=== PATIENT | female | born 1965 | race Caucasian/White ===

== ENCOUNTER 2016-11-03 17:27 | Emergency (ER) | payer MEDICAID ==
[~2016-11-03] VITALS: Ht 170.2 cm; Wt 120.0 kg
[2016-11-03] MEDS ORDERED: SODIUM CHLORIDE 0.9% 1,000ML IVBOLUS ONE (18:30)
[2016-11-03] MEDS ORDERED: ONDANSETRON 2MG/ML, 2ML IVPush ONE (18:30)
[2016-11-03] MEDS ORDERED: ONDANSETRON 2MG/ML, 2ML ONE (18:45)
[2016-11-03 18:52] LABS: BLOOD UREA NITROGEN 11 mg/dL (7-18)
[2016-11-03 18:58] LABS: ASPARTATE AMINO TRANSFERASE 12 U/L (15-37); IS PT STATUS REG ER OR PRE ER? YES
[2016-11-03 20:07] VITALS: BP 133/74
== END 2016-11-03 20:10 | disposition home or self-care (01) ==
LOC: ED 18:08
DX: S39.012A Strain of muscle, fascia and tendon of lower back, initial encounter (principal); M54.41 Lumbago with sciatica, right side; R55 Syncope and collapse; R19.7 Diarrhea, unspecified; J45.909 Unspecified asthma, uncomplicated; W19.XXXA Unspecified fall, initial encounter; Y93.89 Activity, other specified; Y99.8 Other external cause status; Y92.002 Bathroom of unspecified non-institutional (private) residence as the place of occurrence of the external cause
CPT/HCPCS: 36415; 80053; 84484; 85025; 93005; 96361; 96374; 99285; J2405; J7030

== ENCOUNTER 2018-12-15 19:28 | Emergency (ER) | payer BC, MEDICAID ==
[~2018-12-15] VITALS: Ht 170.2 cm; Wt 119.2 kg
[2018-12-15 19:40] VITALS: BP 125/84
[2018-12-15 20:09] LABS: BASOPHILS # (AUTO) 0.14 x10^3/uL (0-0.1); BASOPHILS % (AUTO) 2 % (0-1); EOSINOPHILS # (AUTO) 0.15 x10^3/uL (0-0.4); EOSINOPHILS % (AUTO) 2 % (1-7); LYMPHOCYTES # (AUTO) 2.39 x10^3/uL (1-3.4); LYMPHOCYTES % (AUTO) 28 % (22-44); MD NO; MEAN CORPUSCULAR HEMOGLOBIN 21.2 pg (27.0-34.8); MEAN CORPUSCULAR HGB CONC 31.2 g/dL (32.4-35.8); MEAN CORPUSCULAR VOLUME 67.8 fL (80-100); MEAN PLATELET VOLUME 8.2 fL (7.4-10.4); MONOCYTES # (AUTO) 0.71 x10^3/uL (0.2-0.8); MONOCYTES % (AUTO) 8 % (2-9); NEUTROPHILS # (AUTO) 5.16 x10^3/uL (1.8-6.8); NEUTROPHILS % (AUTO) 60 % (42-75); PLATELET COUNT 552 x10^3/uL (130-400); RED BLOOD COUNT 4.57 x10^6/uL (3.82-5.3); RED CELL DISTRIBUTION WIDTH 18.8 % (9.6-15.2)
[2018-12-15 20:17] LABS: ALANINE AMINOTRANSFERASE 25 U/L (12-78); ALBUMIN 3.7 g/dL (3.4-5.0); ANION GAP 10 mmol/L (5-15); CALCIUM 8.5 mg/dL (8.5-10.1); CHLORIDE 104 mmol/L (98-107); CREATININE 0.97 mg/dL (0.55-1.02)
[2018-12-15 20:21] LABS: ALKALINE PHOSPHATASE 76 U/L (45-117); BILIRUBIN,TOTAL 0.2 mg/dL (0.2-1.0); TOTAL PROTEIN 7.2 g/dL (6.4-8.2); TROPONIN I < 0.015 ng/mL (0.000-0.045)
[2018-12-15] MEDS ORDERED: IBUP-1484 PO (20:44)
[2018-12-15] MEDS ORDERED: POTA10CA PO (20:45)
[2018-12-15] MEDS ORDERED: MULT-709 PO (20:46)
[2018-12-15] MEDS ORDERED: MULT-790 PO (20:47)
--- NOTE | 2018-12-15 21:44 | NUR ---
CT waiting for iv.
--- NOTE | 2018-12-15 22:10 | NUR ---
[facility] BEDSIDE HAND-OFF REPORT TO JORDYN TRACY.
[2018-12-15] MEDS ORDERED: OMNIPAQUE 350 MG/ML, 100ML BOTTLE ONE (22:12)
--- NOTE | 2018-12-15 22:16 | NUR ---
BACK FROM IMAGING
== END 2018-12-15 23:58 | disposition home or self-care (01) ==
LOC: ED 21:22
DX: R07.89 Other chest pain (principal); R00.2 Palpitations
CPT/HCPCS: 36415; 71046; 71275; 80053; 83880; 84484; 85025; 93005; 99284; Q9967